=== PATIENT | male | born 1985 | race Caucasian/White ===

== ENCOUNTER 2020-08-31 10:34 | Emergency (ER) | payer OTHER ==
[~2020-08-31] VITALS: Ht 188 cm; Wt 95.3 kg
[2020-08-31 10:43] VITALS: BP 156/77
--- NOTE | 2020-08-31 11:08 | NUR ---
35/M BIB SELF C/O COUGH , SORE THROAT X 4 DAYS. 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 DENIES N/V/D; SKIN IS PINK/WARM/DRY; AAOX4 WITH EVEN AND STEADY GAIT; LUNGS CLEAR BL; HR EVEN AND REGULAR; PT DENIES ANY FEVER, CP, SOB AT THIS TIME; PATIENT STATES PAIN OF 0/10 AT THIS TIME.
--- NOTE | 2020-08-31 11:10 | NUR ---
COVID SWAB DONE.
--- NOTE | 2020-08-31 11:50 | NUR ---
PT WAS D/C WITH VSS. PT IS A/OX4. PT WAS INSTRUCTED TO FOLLOW UP WITH PCP AND EDUCATED ON IN HOME CARE. PT WAS INSTRUCTED TO SELF QAUANTINE TILL HE GETS RESULTS FOR COVID 19. PT UNDERSTOOD. NO SIGN OF DISTRESS NOTED. PT AMBULATED OUT OF ER. PT RECEIVED A MEDICATION PRESCRIPTION.
[2020-08-31 11:51] VITALS: BP 156/77
== END 2020-08-31 11:50 | disposition home or self-care (01) ==
LOC: MED 10:34
DX: B34.9 Viral infection, unspecified (principal); R09.82 Postnasal drip; J45.909 Unspecified asthma, uncomplicated; Z20.828 Contact with and (suspected) exposure to other viral communicable diseases
CPT/HCPCS: 99283; U0003

== ENCOUNTER 2021-06-13 02:45 | Emergency (ER) | payer OTHER ==
[~2021-06-13] VITALS: Ht 188 cm; Wt 117.9 kg
[2021-06-13 02:45] VITALS: BP 126/64
--- NOTE | 2021-06-13 02:50 | NUR ---
PT TAKEN TO BED 9
--- NOTE | 2021-06-13 02:55 | NUR ---
36/M BIB SELF C/O GENERALIZED WEAKNESS X 5 DAYS WITH NAUSEA. PT DENIES ANY VOMITING, DIARRHEA, FEVER. PT NOT IN PAIN. PMH: ASTHMA NKDA
--- NOTE | 2021-06-13 02:57 | NUR ---
Dr. Dennis examining patient.
--- NOTE | 2021-06-13 03:07 | NUR ---
EKG AT BEDSIDE. STRIP READS SB - 58.
--- NOTE | 2021-06-13 03:08 | NUR ---
HISTORIC SITES REGISTRAR AT BEDSIDE
--- NOTE | 2021-06-13 03:16 | NUR ---
XRAY AT BEDSIDE.
[2021-06-13 03:35] LABS: BASOPHILS % (AUTO) 0.3 % (0.0-2.0); EOSINOPHILS # (AUTO) 0.2 K/uL (0-0.4); EOSINOPHILS % (AUTO) 2.6 % (0.0-4.0); HEMATOCRIT 41.3 % (36-52); HEMOGLOBIN 14.2 g/dL (12.0-18.0); LYMPHOCYTES # (AUTO) 2.2 K/uL (2.0-11.5); LYMPHOCYTES % (AUTO) 33.1 % (20.5-51.1); MEAN CORPUSCULAR HEMOGLOBIN 31 pg (27-31); MEAN CORPUSCULAR HGB CONC 34 g/dL (33-37); MEAN CORPUSCULAR VOLUME 89.9 fL (80-94); MONOCYTES # (AUTO) 0.5 K/uL (0.8-1.0); MONOCYTES % (AUTO) 7.3 % (1.7-9.3); NEUTROPHILS # (AUTO) 3.8 K/uL (1.8-7.7); NEUTROPHILS % (AUTO) 56.7 % (42.2-75.2); PLATELET COUNT (AUTO) 139 K/uL (140-450); RED BLOOD CELL COUNT(AUTO) 4.59 MIL/uL (4.20-6.10); RED CELL DISTRIBUTION WIDTH 12.9 % (11.6-13.7); WHITE BLOOD COUNT (AUTO) 6.7 K/uL (4.8-10.8)
[2021-06-13 04:11] LABS: ALBUMIN 4.2 g/dL (3.4-5.0); ANION GAP 10.6 (8-16); CARBON DIOXIDE 28.3 mmol/L (21-32); CREATININE 0.8 mg/dL (0.6-1.3); FREE T4 (FREE THYROXINE) 0.88 ng/dL (0.76-1.46); POTASSIUM 3.9 mmol/L (3.5-5.1); THYROID STIMULATING HORMONE 3.07 uIU/mL (0.34-3.74); TOTAL BILIRUBIN 0.4 mg/dL (0.0-1.0)
--- NOTE | 2021-06-13 04:52 | NUR ---
Dr. Dennis examining patient.
[2021-06-13 05:50] VITALS: BP 126/64
--- NOTE | 2021-06-13 05:50 | NUR ---
Patient discharged with v/s stable. Written and verbal after care instructions given and explained. Patient verbalized understanding. Ambulatory with steady gait. All questions addressed prior to discharge. Advised to follow up with PMD.
== END 2021-06-13 05:50 | disposition home or self-care (01) ==
LOC: MED 02:45
DX: R53.83 Other fatigue (principal); R53.81 Other malaise; R14.0 Abdominal distension (gaseous)
CPT/HCPCS: 36415; 71045; 80053; 83690; 84439; 84443; 85025; 93005; 99285

== ENCOUNTER 2024-01-22 09:39 | Emergency (ER) | payer OTHER ==
[~2024-01-22] VITALS: Ht 188 cm; Wt 124.7 kg
[2024-01-22 09:45] VITALS: BP 119/78; PULSE 89; RESP 20; TEMP 98.8; O2SAT 96
[2024-01-22] MEDS: ALBUTEROL SULFATE/IPRATROPIU 3 ML SOL IH ONE (11:09)
[2024-01-22 11:10] VITALS: PULSE 83; RESP 16; O2SAT 96; O2SAT 97
[2024-01-22 11:11] LABS: FLU A ANTIGEN negative (NEGATIVE); FLU B ANTIGEN POSITIVE (NEGATIVE)
[2024-01-22] MEDS: predniSONE 20 MG TAB PO ONE (11:31)
[2024-01-22] MEDS ORDERED: TAM75 PO (11:49)
[2024-01-22] MEDS ORDERED: CICL160A INH (11:49)
[2024-01-22] MEDS ORDERED: METH4TAB1 PO (11:49)
[2024-01-22] MEDS ORDERED: MUC600 PO (11:49)
[2024-01-22] MEDS ORDERED: ALBU6.7H6 IH (11:49)
[2024-01-22] MEDS ORDERED: PROM118S6 PO (11:49)
[2024-01-22] MEDS: OSELTAMIVIR PHOSPHATE 75 MG CAP PO ONE (11:50)
[2024-01-22 12:36] VITALS: BP 118/72; PULSE 82; RESP 16; TEMP 98; O2SAT 99
== END 2024-01-22 12:40 | disposition home or self-care (01) ==
LOC: MED 09:39
DX: J10.1 Influenza due to other identified influenza virus with other respiratory manifestations (principal); Z20.822 Contact with and (suspected) exposure to COVID-19; J45.901 Unspecified asthma with (acute) exacerbation; Z79.899 Other long term (current) drug therapy
CPT/HCPCS: 71046; 87426; 87804; 94640; 99284; J7512

== ENCOUNTER 2024-07-10 06:18 | Outpatient (CLI) | payer OTHER ==
[~2024-07-10 06:18] MED LIST: ALBU6.7H6 IH; CICL160A INH; METH4TAB1 PO; MUC600 PO; PROM118S6 PO; TAM75 PO
[2024-07-10 07:08] LABS: BASOPHILS % (AUTO) 0.3 % (0.0-2.0); EOSINOPHILS # (AUTO) 0.1 K/uL (0-0.4); EOSINOPHILS % (AUTO) 1.5 % (0.0-4.0); HEMATOCRIT 44.4 % (36-52); HEMOGLOBIN 15.5 g/dL (12.0-18.0); LYMPHOCYTES % (AUTO) 36.9 % (20.5-51.1); MEAN CORPUSCULAR HEMOGLOBIN 31 pg (27-31); MEAN CORPUSCULAR HGB CONC 35 g/dL (33-37); MEAN CORPUSCULAR VOLUME 87.9 fL (80-94); MONOCYTES # (AUTO) 0.5 K/uL (0.8-1.0); NEUTROPHILS # (AUTO) 4.4 K/uL (1.8-7.7); NEUTROPHILS % (AUTO) 55.3 % (42.2-75.2); PLATELET COUNT (AUTO) 166 K/uL (140-450); RED BLOOD CELL COUNT(AUTO) 5.05 MIL/uL (4.20-6.10); RED CELL DISTRIBUTION WIDTH 12.9 % (11.6-13.7)
[2024-07-10 07:37] LABS: ALBUMIN 3.8 g/dL (3.4-5.0); ANION GAP 11.6 (8-16); CALCIUM 9.2 mg/dL (8.5-10.1); CARBON DIOXIDE 28.2 mmol/L (21-32); CHOL/HDL RATIO 5.6 (1-4.5); CREATININE 0.9 mg/dL (0.6-1.3); POTASSIUM 3.8 mmol/L (3.5-5.1); THYROID STIMULATING HORMONE 4.29 uIU/mL (0.34-3.74); TOTAL BILIRUBIN 0.6 mg/dL (0.0-1.0); TOTAL PROTEIN, SERUM 7.4 g/dL (6.4-8.2)
[2024-07-11 09:06] LABS: VITAMIN D, 25-HYDROXY 32.1 ng/mL (30.0-100.0)
[2024-07-11 21:19] LABS: HEMOGLOBIN A1C 5.9 % (4.8-5.6)
== END 2024-07-10 18:01 | disposition home or self-care (01) ==
LOC: MLB 06:18
DX: Z13.220 Encounter for screening for lipoid disorders (principal); Z11.3 Encounter for screening for infections with a predominantly sexual mode of transmission; Z13.1 Encounter for screening for diabetes mellitus; Z13.9 Encounter for screening, unspecified; E55.9 Vitamin D deficiency, unspecified
CPT/HCPCS: 36415; 80053; 80074; 82306; 83036; 84436; 84443; 85025; 86708

== ENCOUNTER 2024-09-09 09:48 | Emergency (ER) | payer OTHER ==
[~2024-09-09] VITALS: Ht 188 cm; Wt 124.7 kg
[2024-09-09 09:49] VITALS: BP 148/82; PULSE 85; RESP 16; TEMP 97.9; O2SAT 96
[2024-09-09 11:08] VITALS: BP 133/64; PULSE 82; RESP 16; TEMP 36.61404; O2SAT 96
== END 2024-09-09 11:10 | disposition home or self-care (01) ==
LOC: MED 09:48
DX: S92.351A Displaced fracture of fifth metatarsal bone, right foot, initial encounter for closed fracture (principal); J45.909 Unspecified asthma, uncomplicated; R03.0 Elevated blood-pressure reading, without diagnosis of hypertension; Z79.899 Other long term (current) drug therapy; W01.0XXA Fall on same level from slipping, tripping and stumbling without subsequent striking against object, initial encounter; Y93.89 Activity, other specified; Y92.89 Other specified places as the place of occurrence of the external cause; Y99.8 Other external cause status
CPT/HCPCS: 29505; 73630; 99283